=== PATIENT | female | born 1980 | race Caucasian/White ===

== ENCOUNTER 2018-05-08 12:18 | Emergency (ER) | payer OTHER, MEDICAID ==
[~2018-05-08] VITALS: Ht 149.9 cm; Wt 46.7 kg
[2018-05-08] MEDS ORDERED: ACCUNEB SO1.25 MG/1 INH (12:42)
[2018-05-08 13:08] LABS: URINE BILIRUBIN NEGATIVE (Negative); URINE BLOOD NEGATIVE (Negative); URINE CLARITY CLEAR; URINE COLOR YELLOW; URINE GLUCOSE-RANDOM NEGATIVE (Negative); URINE KETONES NEGATIVE (Negative); URINE LEUKOCYTES-REFLEX 1+ (Negative); URINE NITRITE-REFLEX NEGATIVE (Negative); URINE PROTEIN NEGATIVE (Negative); URINE SPECIFIC GRAVITY >= 1.030 (1.005-1.030); URINE UROBILINOGEN 0.2 E.U./dl (0.2-1.0)
[2018-05-08 13:17] LABS: BACTERIA-REFLEX 1-9 Few /HPF (None Seen); CASTS None Seen /LPF (None Seen); CRYSTALS None Seen /LPF (None Seen); SQUAMOUS 4-10 Moderate /LPF (0-3); URINE RBC 3-10 Few /HPF (0-2)
[2018-05-08] MEDS ORDERED: KEFLEX500 M1 PO (13:43)
[2018-05-08 14:05] VITALS: BP 150/101
== END 2018-05-08 14:06 | disposition home or self-care (01) ==
LOC: M.ERS 12:18
PROVIDERS: Nurse Practitioner Family
DX: A59.9 Trichomoniasis, unspecified (principal); N39.0 Urinary tract infection, site not specified; F17.200 Nicotine dependence, unspecified, uncomplicated; J45.909 Unspecified asthma, uncomplicated; Z90.710 Acquired absence of both cervix and uterus; Z88.0 Allergy status to penicillin; Z90.49 Acquired absence of other specified parts of digestive tract

== ENCOUNTER 2018-05-18 13:27 | Emergency (ER) | payer OTHER, MEDICAID ==
[~2018-05-18] VITALS: Ht 149.9 cm; Wt 45.8 kg
[~2018-05-18 13:27] MED LIST: ACCUNEB SO1.25 MG/1 INH; KEFLEX500 M1 PO
[2018-05-18] MEDS ORDERED: SINGULAIR 10 MG10 M1 PO (13:37)
[2018-05-18] MEDS ORDERED: VENTOLIN HFA 1818 GM INH (15:00)
[2018-05-18] MEDS ORDERED: PREDNISONE50 MG PO (15:00)
[2018-05-18 15:10] VITALS: BP 126/77
== END 2018-05-18 15:12 | disposition home or self-care (01) ==
LOC: M.ERS 13:27
DX: J45.901 Unspecified asthma with (acute) exacerbation (principal); Z88.0 Allergy status to penicillin; Z90.710 Acquired absence of both cervix and uterus; Z90.49 Acquired absence of other specified parts of digestive tract